=== PATIENT | female | born 1990 | race African-American/Black ===

== ENCOUNTER 2018-05-18 22:36 | Emergency (ER) | payer OTHER ==
[2018-05-18 22:42] VITALS: BP 163/65; PULSE 88; TEMP 98.4; BMI 36.9
[2018-05-18 23:51] LABS: BASO % 1.3 % (0-2.0); EOS % 2.8 % (0-4.5); HEMATOCRIT 37.7 % (32.4-45.2); HEMOGLOBIN 12.8 GM/dL (10.7-15.3); LYMPH % 23.3 % (8-40); MCH 28.8 pg (25.7-33.7); MEAN CELL VOLUME 84.7 fl (80-96); MEAN PLT VOLUME 9.1 fl (7.5-11.1); NEUT % 66.6 % (42.8-82.8); PLATELET COUNT 232 K/MM3 (134-434); RBC 4.45 M/mm3 (3.60-5.2); RDW 15.6 % (11.6-15.6); WHITE BLOOD COUNT 16.2 K/mm3 (4.0-10.0)
[2018-05-19 00:32] LABS: ALBUMIN 3.9 g/dl (3.4-5.0); ALK PHOS 107 U/L (45-117); ANION GAP 4 MMOL/L (8-16); BILIRUBIN,TOTAL 0.2 mg/dL (0.2-1); BLOOD UREA NITROGEN 12 mg/dL (7-18); CALCIUM 8.8 mg/dL (8.5-10.1); CHLORIDE 107 mmol/L (98-107); CO2 28 mmol/L (21-32); CREATININE 0.8 mg/dL (0.55-1.3); GLUCOSE,RANDOM 101 mg/dL (74-106); POTASSIUM 3.8 mmol/L (3.5-5.1); SGOT/AST 10 U/L (15-37); SGPT/ALT 30 U/L (13-61); SODIUM 138 mmol/L (136-145); TOT PROT 7.6 g/dl (6.4-8.2)
--- NOTE | 2018-05-19 01:01 | PDOC ---
History of Present Illness - General History Source: Patient Exam Limitations: No Limitations - History of Present Illness Initial Comments: 05/19/18 01:04 The patient is a 27 year old female with a significant past medical history of anemia who presents to the emergency department with vaginal bleeding for 3 days. The patient reports some associated sharp pelvic pain that was more intense on the left side today. She also endorses some associated vomiting and chills. The patient reports that her last normal period was towards the end of march. She does endorse unprotected sexual activity and reports possibility of . She denies taking any at home tests. The patient reports that she had a prior ectopic in the past (2011) and that her current symptoms feel similar to that. The patient reports that she had a child a few years after her ectopic by which it was a normal with no complications. The patient denies any other symptoms or complaints. She denies any fever, nausea, diarrhea, constipation or urinary symptoms. She denies any chest pain, shortness of breath , headache or dizziness. <Link Veliz - Last Filed: 05/19/18 01:04> <Jey Pérez - Last Filed: 05/19/18 02:24> - General Chief Complaint: Vaginal Bleeding Stated Complaint: ABNORMAL VAGINAL BLEEDING Time Seen by Provider: 05/18/18 23:09 Past History <Link Veliz - Last Filed: 05/19/18 01:04> - Past Medical History Asthma: No Cancer: No Cardiac Disorders: No COPD: No CHF: No Diabetes: No HTN: No Seizures: No Thyroid Disease: No Other medical history: eptopic - Reproductive History Is Patient Now?: (UNKOWN) (#): 2 Para: 1 Ectopic : Yes (RUPTURED ECTOPIC R SIDE) Therapeutic (s) & number: No Spontaneous : 0 - Suicide/Smoking/Psychosocial Hx Smoking History: Current some day smoker Have you smoked in the past 12 months: Yes Number of Cigarettes Smoked Daily: 2 Information on smoking cessation initiated: No Hx Alcohol Use: No Drug/Substance Use Hx: No Hx Substance Use Treatment: No <Jey Pérez - Last Filed: 05/19/18 02:24> - Past Medical History Allergies/Adverse Reactions: Allergies Allergy/AdvReac Type Severity Reaction Status Date / Time No Known Allergies Allergy Verified 04/26/14 21:06 Home Medications: Ambulatory Orders One Tablet 1 tab PO DAILY 05/29/14 Oxycodone HCl/Acetaminophen [Percocet 5/325 -] 1 tab PO Q8H PRN #20 tablet 06/01 Review of Systems - Review of Systems Able to Perform ROS?: Yes Comments:: 05/19/18 01:05 CONSTITUTIONAL: No fever, no chills, no fatigue EYES: No visual changes ENT: No ear pain, no sore throat CARDIOVASCULAR: No chest pain, no palpitations RESPIRATORY: No cough, no SOB GI: (+)LLQ pain, vomiting. no nausea, no constipation, no diarrhea GENITOURINARY: No dysuria, no frequency, no hematuria MUSKULOSKELETAL: No backpain, no joint pain, no myalgias SKIN: No rash NEURO: No headache <Link Veliz - Last Filed: 05/19/18 01:04> *Physical Exam - Vital Signs Last Vital Signs Temp Pulse Resp BP Pulse Ox 98.4 F 88 18 163/65 100 05/18/18 22:38 05/18/18 22:38 05/18/18 22:38 05/18/18 22:38 05/18/18 22:38 - Physical Exam Comments: 05/19/18 01:05 CONSTITUTIONAL: Well-appearing; well-nourished; in no apparent distress HEAD: Normocephalic; atraumatic EYES: PERRL; EOM intact ENMT: External appears normal; normal oropharynx NECK: Supple; non-tender; no cervical lymphadenopathy CARD: Normal S1, S2; no murmurs, rubs, or gallops RESP: Normal chest excursion with respiration; breath sounds clear and equal bilaterally; no wheezes, rhonchi, or rales ABD:(+)Obese belly, LLQ pain. Soft, non-distended; no palpable organomegaly, no palpable hernias EXT: Normal ROM in all four extremities; non-tender to palpation; distal pulses intact SKIN: Warm, dry, no rash NEURO: No focal neurological deficiencies. <Link Veliz - Last Filed: 05/19/18 01:04> - Vital Signs Last Vital Signs Temp Pulse Resp BP Pulse Ox 98.4 F 88 18 163/65 100 05/18/18 22:38 05/18/18 22:38 05/18/18 22:38 05/18/18 22:38 05/18/18 22:38 <Jey Pérez - Last Filed: 05/19/18 02:24> Moderate Sedation - Procedure Monitoring Vital Signs: Procedure Monitoring Vital Signs Temperature 98.4 F 05/18/18 22:38 Pulse Rate 88 05/18/18 22:38 Respiratory Rate 18 05/18/18 22:38 Blood Pressure 163/65 05/18/18 22:38 O2 Sat by Pulse Oximetry (%) 100 05/18/18 22:38 <Link Veliz - Last Filed: 05/19/18 01:04> - Procedure Monitoring Vital Signs: Procedure Monitoring Vital Signs Temperature 98.4 F 05/18/18 22:38 Pulse Rate 88 05/18/18 22:38 Respiratory Rate 18 05/18/18 22:38 Blood Pressure 163/65 05/18/18 22:38 O2 Sat by Pulse Oximetry (%) 100 05/18/18 22:38 <Jey Pérez - Last Filed: 05/19/18 02:24> ED Treatment Course - LABORATORY CBC & Chemistry Diagram: 05/18/18 23:45 05/18/18 23:45 - ADDITIONAL ORDERS Additional order review: Laboratory Results 05/19/18 05/18/18 05/18/18 00:05 23:45 23:45 Sodium 138 Potassium 3.8 Chloride 107 Carbon Dioxide 28 Anion Gap 4 L BUN 12 Creatinine 0.8 Creat Clearance w eGFR > 60 Random Glucose 101 Calcium 8.8 Total Bilirubin 0.2 AST 10 L ALT 30 Alkaline Phosphatase 107 Total Protein 7.6 Albumin 3.9 Serum , Qual Positive Positive 05/18/18 23:45 RBC 4.45 MCV 84.7 MCHC 34.0 RDW 15.6 MPV 9.1 D Neutrophils % 66.6 Lymphocytes % 23.3 D Monocytes % 6.0 Eosinophils % 2.8 Basophils % 1.3 D <Link Veliz - Last Filed: 05/19/18 01:04> - LABORATORY CBC & Chemistry Diagram: 05/18/18 23:45 05/18/18 23:45 - ADDITIONAL ORDERS Additional order review: Laboratory Results 05/19/18 05/18/18 05/18/18 00:05 23:45 23:45 Sodium 138 Potassium 3.8 Chloride 107 Carbon Dioxide 28 Anion Gap 4 L BUN 12 Creatinine 0.8 Creat Clearance w eGFR > 60 Random Glucose 101 Calcium 8.8 Total Bilirubin 0.2 AST 10 L ALT 30 Alkaline Phosphatase 107 Total Protein 7.6 Albumin 3.9 Serum , Qual Positive Positive 05/18/18 23:45 RBC 4.45 MCV 84.7 MCHC 34.0 RDW 15.6 MPV 9.1 D Neutrophils % 66.6 Lymphocytes % 23.3 D Monocytes % 6.0 Eosinophils % 2.8 Basophils % 1.3 D - RADIOLOGY Radiology Studies Ordered: Category Date Time Status TRANSVAGINAL US PREG [US] Stat Ultrasound 05/19/18 00:27 Ordered <Jey Pérez - Last Filed: 05/19/18 02:24> Medical Decision Making - Medical Decision Making 05/19/18 01:01 27-year-old female, 3 para 1, at 5 weeks by LMP with previous history of ectopic presents with atraumatic left lower quadrant pain and 3 days of vaginal bleeding associated with nonbloody nonbilious vomiting. Patient is noted to be spreg positive. I suspect ectopic . Will obtain beta hCG and type and screen. Will obtain transvaginal ultrasound. Will reassess. [facility] consult as needed. 05/19/18 02:16 Patient reassessed. Patient is resting comfortably. No additional episodes of vaginal bleeding reported. Transvaginal ultrasound shows a possible gestational sac within the left adnexa with pole but no FH. There is no evidence of IUP or free fluid in the pelvis. Beta hCG is noted to be 529. Case discussed with Dr. Solis of [facility]. The case likely represents an ectopic . pt is a candidate for methotrexate therapy. will administer im methotraxate. will d/c with ectopic precautions 05/19/18 02:21 risk and benefit of treatment discussed. is not desirable. <Jey Pérez - Last Filed: 05/19/18 02:24> *DC/Admit/Observation/Transfer - Attestations Scribe Attestion: 05/19/18 01:05 Documentation prepared by Link Veliz, acting as medical claims processor for Jey Pérez MD. <Link Veliz - Last Filed: 05/19/18 01:04> - Attestations Physician Attestion: 05/19/18 01:01 The documentation was prepared by the scribe under my direct supervision. I have reviewed the documentation which correctly represents the findings, medical decision-making and critical action taken by me. <Jey Pérez - Last Filed: 05/19/18 02:24> Diagnosis at time of Disposition: Ectopic of ovary Qualifiers: Intrauterine status: without intrauterine Laterality: left Qualified Code(s): O00.202 - Left ovarian without intrauterine - Discharge Dispostion Disposition: HOME Condition at time of disposition: Stable - Referrals Referrals: Ailyn Solis MD [Staff Physician] - - Patient Instructions Printed Discharge Instructions: DI for Ectopic , Methotrexate ( Alternative Therapy) Additional Instructions: U been diagnosed with an ectopic which is a within the left ovary. You've been given methotrexate for the treatment of the ectopic . Take Tylenol or Motrin for cramping. Follow-up in 4-7 days with OB/ WELLNESS NURSE for reevaluation. Return immediately for severe vaginal bleeding, lightheadedness, dizziness, severe abdominal pain or back pain, fever and chills.
[2018-05-19 01:12] LABS: INR 0.95 (0.83-1.09); PROTHROMBIN TIME (PATIENT) 11.2 SEC (9.7-13.0)
[2018-05-19] MEDS ORDERED: LACTATED RINGERS SOLUTION 1,000 ML/1,000 ML INFUS.BAG IV SCH (01:15)
[2018-05-19] MEDS ORDERED: METHOTREXATE SODIUM/PF 25 MG/ML VIAL IM ONE (02:13)
[2018-05-19 03:04] LABS: URINE APPEARANCE CLEAR; URINE BILIRUBIN NEGATIVE (<2.0 mg/dL); URINE COLOR YELLOW; URINE GLUCOSE (UA) NEGATIVE (NEGATIVE); URINE KETONE NEGATIVE (NEGATIVE); URINE LEUK ESTERASE NEGATIVE (NEGATIVE); URINE NITRITE NEGATIVE (NEGATIVE); URINE PROTEIN NEGATIVE (NEGATIVE); URINE UROBILINOGEN NEGATIVE mg/dL (0.2-1.0)
[2018-05-19 03:09] LABS: EPI CELLS RARE /HPF (FEW); URINE BACTERIA RARE /hpf (NONE SEEN); URINE MUCUS RARE
[2018-05-19 03:16] LABS: HCG,QUALITATIVE URINE Positive
== END 2018-05-19 03:39 | disposition home or self-care (01) ==
LOC: JER 22:36
PROC: 3E0337Z Introduction of Electrolytic and Water Balance Substance into Peripheral Vein, Percutaneous Approach (ICD-10-PCS; principal; 2018-05-18)
PROC: 3E023GC Introduction of Other Therapeutic Substance into Muscle, Percutaneous Approach (ICD-10-PCS; 2018-05-18)
DX: O26.891 Other specified pregnancy related conditions, first trimester (principal); O00.202 Left ovarian pregnancy without intrauterine pregnancy; Z3A.01 Less than 8 weeks gestation of pregnancy
CPT/HCPCS: 36415; 76817-TC; 80053; 81003; 81015; 84702; 84703; 85025; 85610; 86850; 86900; 86901; 99283-25; J9260